=== PATIENT | female | born 1990 | race African-American/Black ===

== ENCOUNTER 2017-02-05 20:50 | Emergency (ER) | payer OTHER ==
[~2017-02-05] VITALS: Ht 172.7 cm; Wt 77.1 kg
[~2017-02-05 20:50] MED LIST: DIAZ5TAB PO; NAPR500T8 PO
[2017-02-05 21:32] VITALS: BP 133/62
--- NOTE | 2017-02-05 21:52 | PHYS DOC ---
Past Medical History Past Medical History: No Pertinent History Past Surgical History: Alcohol Use: Occasionally Drug Use: None Adult General Chief Complaint Chief Complaint: CHEST WALL PAIN HPI HPI Patient is a 26 year old female with no past medical history presents here today complaining of chest pain that started 2 weeks ago. Patient denies any history of hypertension diabetes liver longer kidney problems. Patient has any history of strokes or coronary disease. Patient has any history of DVT or PE in the past. Patient does not smoke. Patient will do any drugs. Patient reports she drinks occasionally. Patient has any control pills. Patient reports taking vitamins. Patient has any fevers shakes chills nausea vomiting diarrhea shortness breath cough cold runny nose. Patient reports that the pain wasn't right side. Patient denies any exacerbating factors including exertion eating deep inspiration or cough. She is unsure when her last menstrual period is but she thinks that she may be . Patient's physical exam the ER is unremarkable. Patient has every producible tenderness to palpation to her right anterior chest wall. Patient's repeatable pain with deep inspiration and cough. Patient's abdomen was soft nontender no rebound or guarding. Patient's workup in ER has been unremarkable. Patient has a normal EKG. Patient' s EKG reveals normal sinus rhythm at a heart rate of [address]-T wave abnormalities and no evidence of ST elevation OK. There is no old EKG to compare with. Assessment and plan: This is a 26-year-old female who presents here today secondary to right-sided anterior chest wall pain. Patient's EKG does not reveal tachycardia. There is a small Q and T-wave in leads 3. There is no large S wave in lead 1. Patient is . Patient is low risk for PE. Patient is not on any control pills. Patient does not smoke. Patient does not have a sedentary lifestyle. Patient does not have any family history of PE or DVT. Patient herself has not had any history of PE or DVT. Patient's physical exam did not reveal a split S2. There was no RV heave. There was no calf tenderness or Homans sign. Patient is not tachycardic on exam. Patient's pulse ox is 99% on room air. Patient is not complaining of any shortness of breath. Given that she is extremely remote risk and is I do not think further studies including a CT scan would be warranted. I feel that the risk benefit ratio would not warranted in the risk of radiation to the fetus versus the likelihood of it being a PE given her very low risk and normal physical exam would not warrant a CTA at this time. Patient test was positive in the emergency department. Patient was informed of this. Patient will be discharged home with instructions take Tylenol as needed for pain. Continue her pale vitamins and to follow-up with her primary care physician for further management. Laboratory Tests Test 02/05/17 20:21 Bedside Urine HCG, Qualitative Hcg positive Current Medications Medications (Trade) Dose Ordered Sig/Jacek Route PRN Reason Start Time Stop Time Status Last Admin Dose Admin Ibuprofen (Motrin) 600 mg 1X ONCE PO 02/05/17 22:00 02/05/17 22:01 Review of Systems Review of Systems Constitutional: Denies fever or chills [] Eyes: Denies change in visual acuity, redness, or eye pain [] HENT: Denies nasal congestion or sore throat [] Respiratory: Denies cough or shortness of breath [] : Denies dysuria or hematuria [] Musculoskeletal: Denies back pain or joint pain [] InAll other review systems are negative except as documented in the history of present illness portion. Current Medications Current Medications Current Medications Medications (Trade) Dose Ordered Sig/Jacek Start Time Stop Time Status Last Admin Dose Admin Ibuprofen (Motrin) 600 mg 1X ONCE 02/05/17 22:00 02/05/17 22:01 DC 02/05/17 21:52 600 MG Allergies Allergies Allergies Coded Allergies Type Severity Reaction Last Updated Verified No Known Drug Allergies 05/06/16 No Physical Exam Physical Exam Constitutional: Well developed, well nourished, no acute distress, non-toxic appearance. [] HENT: Normocephalic, atraumatic, bilateral external ears normal, oropharynx moist, no oral exudates, nose normal. [] Eyes: PERRLA, EOMI, conjunctiva normal, no discharge. [] Neck: Normal range of motion, no tenderness, supple, no stridor. [] Cardiovascular:Heart rate regular rhythm, no murmur [] Lungs & Thorax: Bilateral breath sounds clear to auscultation [] Abdomen: Bowel sounds normal, soft, no tenderness, no masses, no pulsatile masses. [] Skin: Warm, dry, no erythema, no rash. [] Back: No tenderness, no CVA tenderness. [] Extremities: No tenderness, no cyanosis, no clubbing, ROM intact, no edema. [] Neurologic: Alert and oriented X 3, normal motor function, normal sensory function, no focal deficits noted. [] Psychologic: Affect normal, judgement normal, mood normal. [] Current Patient Data Vital Signs Vital Signs Date Time Temp Pulse Resp B/P (MAP) Pulse Ox O2 Delivery O2 Flow Rate FiO2 02/05/17 21:32 80 16 133/62 (85) 100 Room Air 02/05/17 21:08 98.0 98.0 Lab Values Laboratory Tests Test 02/05/17 20:21 POC Urine HCG, Qualitative Hcg positive (Negative) EKG EKG [] Radiology/Procedures Radiology/Procedures [] Course & Med Decision Making Course & Med Decision Making Pertinent Labs and Imaging studies reviewed. (See chart for details) [] Dragon Disclaimer Dragon Disclaimer This electronic medical record was generated, in whole or in part, using a voice recognition dictation system. Departure Departure Impression: Primary Impression: Right-sided chest pain Additional Impression: Disposition: HOME, SELF-CARE Condition: IMPROVED Referrals: NO PCP (PCP) Patient Instructions: ABCs of , Chest Pain (Nonspecific) Additional Instructions: Tylenol as needed for pain. Continue with her vitamins. Follow-up with her primary care doctor for further evaluation. Problem Qualifiers LONDON ZEPEDA MD Feb 05, 2017 21:52
[2017-02-05] MEDS ORDERED: IBUPROFEN 600 MG TABLET. PO ONE (22:00)
== END 2017-02-05 22:00 | disposition home or self-care (01) ==
LOC: ER 20:50
DX: O26.899 Other specified pregnancy related conditions, unspecified trimester (principal); R07.89 Other chest pain; Z79.899 Other long term (current) drug therapy; Z3A.00 Weeks of gestation of pregnancy not specified
CPT/HCPCS: 81025; 99283-25

== ENCOUNTER 2017-04-12 12:05 | Emergency (ER) | payer OTHER ==
[~2017-04-12] VITALS: Ht 172.7 cm; Wt 78.0 kg
[2017-04-12 12:29] LABS: BILIRUBIN,URINE NEGATIVE (NEG); GLUCOSE,URINE NEGATIVE (NEG); NITRITE,URINE NEGATIVE (NEG); PROTEIN,URINE NEGATIVE (NEG-TRACE); UROBILINOGEN,URINE 0.2 mg/dL (0.2 mg/dL)
[2017-04-12 12:37] LABS: BACTERIA,URINE FEW /HPF (0-FEW); RBC,URINE 0 /HPF (0-2); SQUAMOUS EPITHELIAL CELL,UR FEW /LPF
[2017-04-12 12:48] LABS: BASO % 0 % (0-3); EOS % 0 % (0-3); HEMATOCRIT 34.6 % (36.0-47.0); HEMOGLOBIN 11.9 g/dL (12.0-15.5); LYMPH # 1.6 x10^3/uL (1.0-4.8); LYMPH % 22 % (24-48); MEAN CORPUSCULAR HEMOGLOBIN 32 pg (25-35); MEAN CORPUSCULAR HGB CONC 35 g/dL (31-37); MEAN CORPUSCULAR VOLUME 92 fL (79-100); MONO % 5 % (0-9); NEUT % 72 % (31-73); PLATELET COUNT 226 x10^3/uL (140-400); RED BLOOD COUNT 3.76 x10^6/uL (3.50-5.40); WHITE BLOOD COUNT 7.2 x10^3/uL (4.0-11.0)
--- NOTE | 2017-04-12 14:37 | PHYS DOC ---
Past Medical History Past Medical History: No Pertinent History Past Surgical History: Alcohol Use: None Drug Use: None Adult General Chief Complaint Chief Complaint: ABDOMINAL PAIN IN [facility] HPI Patient is a 26 year old G4, P3, AA female proximally 14 weeks gestation who presents with intermittent right lower quadrant pain described as sharp times one week. Pain is last proximally 5 minutes at a time. It is not associated with back pain, vaginal bleeding or discharge. Pain is not worse with ambulation , lifting or movement. Patient has been evaluated by her OB this but has not had an ultrasound confirmed IUP. Patient denies dizziness, lightheadedness, shortness of breath, and leg pain. Review of Systems Review of Systems ROS as per HPI. Allergies Allergies Allergies Coded Allergies Type Severity Reaction Last Updated Verified No Known Drug Allergies 05/06/16 No Physical Exam Physical Exam Constitutional: Well developed, well nourished, no acute distress, non-toxic appearance. [] HENT: Normocephalic, atraumatic, bilateral external ears normal, oropharynx moist, no oral exudates, nose normal. [] Eyes: PERRLA, EOMI, conjunctiva normal, no discharge. [] Neck: Normal range of motion, no tenderness. [] Cardiovascular:Heart rate regular rhythm, no murmur. [] Lungs & Thorax: Bilateral breath sounds clear to auscultation. [] Abdomen: Bowel sounds normal, soft, no tenderness. [] Skin: Warm, dry. [] Back: No tenderness. [] Extremities: No tenderness. [] Neurologic: Alert and oriented X 3, normal motor function, normal sensory function, no focal deficits noted. [] Psychologic: Affect normal, judgement normal, mood normal. [] Current Patient Data Vital Signs Vital Signs Date Time Temp Pulse Resp B/P (MAP) Pulse Ox O2 Delivery O2 Flow Rate FiO2 04/12/17 16:12 64 18 119/59 (79) 100 Room Air 04/12/17 12:10 98.6 98.6 Lab Values Laboratory Tests Test 04/12/17 12:10 04/12/17 12:14 04/12/17 12:37 Urine Collection Type Unknown Urine Color Yellow Urine Clarity Clear Urine pH 7.0 Urine Specific [place] <=1.005 Urine Protein Negative mg/dL (NEG-TRACE) Urine Glucose (UA) Negative mg/dL (NEG) Urine Ketones (Stick) Negative mg/dL (NEG) Urine Blood Negative (NEG) Urine Nitrite Negative (NEG) Urine Bilirubin Negative (NEG) Urine Urobilinogen Dipstick 0.2 mg/dL (0.2 mg/dL) Urine Leukocyte Esterase Small (NEG) Urine RBC 0 /HPF (0-2) Urine WBC 1-4 /HPF (0-4) Urine Squamous Epithelial Cells Few /LPF Urine Bacteria Few /HPF (0-FEW) POC Urine HCG, Qualitative Hcg positive (Negative) White Blood Count 7.2 x10^3/uL (4.0-11.0) Red Blood Count 3.76 x10^6/uL (3.50-5.40) Hemoglobin 11.9 g/dL (12.0-15.5) L Hematocrit 34.6 % (36.0-47.0) L Mean Corpuscular Volume 92 fL (79-100) Mean Corpuscular Hemoglobin 32 pg (25-35) Mean Corpuscular Hemoglobin Concent 35 g/dL (31-37) Red Cell Distribution Width 13.0 % (11.5-14.5) Platelet Count 226 x10^3/uL (140-400) Neutrophils (%) (Auto) 72 % (31-73) Lymphocytes (%) (Auto) 22 % (24-48) L Monocytes (%) (Auto) 5 % (0-9) Eosinophils (%) (Auto) 0 % (0-3) Basophils (%) (Auto) 0 % (0-3) Neutrophils # (Auto) 5.2 x10^3uL (1.8-7.7) Lymphocytes # (Auto) 1.6 x10^3/uL (1.0-4.8) Monocytes # (Auto) 0.4 x10^3/uL (0.0-1.1) Eosinophils # (Auto) 0.0 x10^3/uL (0.0-0.7) Basophils # (Auto) 0.0 x10^3/uL (0.0-0.2) Maternal Serum HCG Beta Subunit 57519 mIU/mL (0-5) H Laboratory Tests 04/12/17 12:37 EKG EKG [] Radiology/Procedures Radiology/Procedures [OB ultrasound: 14 week, 3 week IUP vital gestation. Small area of subchorionic hemorrhage] Course & Med Decision Making Course & Med Decision Making Pertinent Labs and Imaging studies reviewed. (See chart for details) [Patient O+. Asymptomatic in the ED. Subchorionic hemorrhage likely explanation of patient's symptoms. Recommend supportive care, pelvic rest and follow-up. Return precautions reviewed.] Dragon Disclaimer Dragon Disclaimer This electronic medical record was generated, in whole or in part, using a voice recognition dictation system. Departure Departure Impression: Primary Impression: Threatened in early Disposition: 01 HOME, SELF-CARE Condition: GOOD Referrals: UNKNOWN PCP NAME (PCP) JEANINE YOO DO Apr 12, 2017 14:37
--- NOTE | 2017-04-12 15:15 | RAD ---
Examination: Obstetric ultrasound greater than 14 weeks History: History of abdominal pain, . Comparison: 07/11/2016 Findings: Single living intrauterine identified with heart rate of 153 bpm The placenta is in the posterior wall in the fundus. There is a 3.8 cm heterogeneous echogenicity identified in the subcarinal region likely a subchorionic hemorrhage. Given LMP 01/04/2017. Clinical age 14 weeks 0 days with expected date of delivery 10/11/2017. Ultrasound age is 14 weeks and 3 days with expected delivery 10/08/2017 by this ultrasound. Cephalic index 81.4 Head circumference to abdominal circumference is 1.25 Femur length to biparietal diameter 56.7 Femur length head circumference 14.2 Femur length abdominal circumference 17.7 The biparietal diameter is 2.54 cm corresponding to 14 weeks and 3 days +/- 8 days. Head circumference is 10.14 cm corresponding to 14 weeks and 5 days +/- 8 days. Abdominal circumference 8.12 cm corresponding to 14 weeks and 3 days plus or minus 12 days Femur length 1.4 cm corresponding to 14 weeks and 2 days +/- 10 days. The cervix couldn't be clearly visualized. The visualized amniotic fluid grossly appears unremarkable. Impression: 1. Single living intrauterine with heart rate of 153 bpm with gestational age of 14 weeks and 3 days. 2. 3.8 cm heterogeneous echogenicity identified in the subchorionic region likely a small subchorionic bleed.
[2017-04-12 16:12] VITALS: BP 119/59
== END 2017-04-12 16:14 | disposition home or self-care (01) ==
LOC: ER 12:05
DX: O20.0 Threatened abortion (principal); Z3A.14 14 weeks gestation of pregnancy
CPT/HCPCS: 36415; 76805; 76817; 81001; 81025; 84702; 85025; 86900; 86901; 87086; 99285-25

== ENCOUNTER 2017-07-28 21:14 | Observation (INO) | payer OTHER ==
[2017-07-28] MEDS ORDERED: IV RINGERS,LACTATED 1000ML 1,000 ML IV (21:30)
[2017-07-28 21:39] LABS: BILIRUBIN,URINE NEGATIVE (NEG); CLARITY,URINE CLEAR; COLOR,URINE YELLOW; GLUCOSE,URINE NEGATIVE (NEG); NITRITE,URINE NEGATIVE (NEG); PH,URINE 6.5; PROTEIN,URINE NEGATIVE (NEG-TRACE); UROBILINOGEN,URINE 0.2 mg/dL (0.2 mg/dL)
[2017-07-28 21:45] LABS: BARBITURATES NEG (NEG); BENZODIAZEPINES NEG (NEG); CANNABINOIDS NEG (NEG); COCAINE NEG (NEG); METHADONE NEG (NEG); OPIATES NEG (NEG); PHENCYCLIDINE NEG (NEG)
[2017-07-28 21:46] LABS: AMPHETAMINE/METHAMPHETAMINE NEG (NEG); ETHANOL, URINE NEG (NEG); RBC,URINE OCC /HPF (0-2)
[2017-07-28 21:47] LABS: BACTERIA,URINE MODERATE /HPF (0-FEW); SQUAMOUS EPITHELIAL CELL,UR MOD /LPF
== END 2017-07-28 22:43 | disposition home or self-care (01) ==
LOC: 3 SO LND 21:14
DX: O26.893 Other specified pregnancy related conditions, third trimester (principal); R10.31 Right lower quadrant pain; Z3A.29 29 weeks gestation of pregnancy
CPT/HCPCS: 80307; 81001; 87086; G0378; G0379

== ENCOUNTER 2017-10-22 18:34 | Emergency (ER) | payer OTHER | END 2017-10-22 20:08 | disposition home or self-care (01) | LOC: ER 20:08 | DX: J01.00 Acute maxillary sinusitis, unspecified (principal); J06.9 Acute upper respiratory infection, unspecified; F12.10 Cannabis abuse, uncomplicated | CPT/HCPCS: 99283 ==

== ENCOUNTER 2020-03-06 20:40 | Emergency (ER) | payer SELFPAY ==
[~2020-03-06] VITALS: Ht 172.7 cm; Wt 87.0 kg
[~2020-03-06 20:40] MED LIST changes: +AMOX875T PO; +FLUT9.9S NS
[2020-03-06 21:50] VITALS: BP 141/65
[2020-03-06] MEDS ORDERED: DIPH25CA58 PO (22:28)
[2020-03-06] MEDS ORDERED: PRED50TA PO (22:28)
[2020-03-06] MEDS ORDERED: TRIA15OI TP (22:28)
[2020-03-06] MEDS ORDERED: FAMO20TA5 PO (22:28)
--- NOTE | 2020-03-06 22:29 | PHYS DOC ---
Past Medical History Past Medical History: No Pertinent History Past Surgical History: Other Smoking Status: Never Smoker Alcohol Use: Occasionally Drug Use: Marijuana General Adult EDM: Chief Complaint: INSECT BITE HPI: HPI: Patient is a 29 year old female who presents the ED today with an insect bite to the right lateral ankle that occurred yesterday. Patient denies any fever, denies any anaphylactic reaction symptoms Review of Systems: Review of Systems: Constitutional: Denies fever or chills. [] Musculoskeletal: Denies back pain or joint pain. [] Integument: Reports insect bite to the right lateral ankle Neurologic: Denies headache, focal weakness or sensory changes. [] Psychiatric: Denies depression or anxiety. [] Heart Score: Risk Factors: Risk Factors: DM, Current or recent (<one month) smoker, HTN, HLP, family history of CAD, obesity. Risk Scores: Score 0 - 3: 2.5% MACE over next 6 weeks - Discharge Home Score 4 - 6: 20.3% MACE over next 6 weeks - Admit for Clinical Observation Score 7 - 10: 72.7% MACE over next 6 weeks - Early Invasive Strategies Current Medications: Current Medications Medications (Trade) Dose Ordered Sig/Jacek Start Time Stop Time Status Last Admin Dose Admin Cetirizine HCl (ZyrTEC) 10 mg 1X ONCE 03/06/20 22:30 03/06/20 22:31 Famotidine (Pepcid) 20 mg 1X ONCE 03/06/20 22:30 03/06/20 22:31 Prednisone (Prednisone) 50 mg 1X ONCE 03/06/20 22:30 03/06/20 22:31 Allergies: Allergies: Allergies Coded Allergies Type Severity Reaction Last Updated Verified No Known Drug Allergies 05/06/16 No Physical Exam: PE: Constitutional: Well developed, well nourished, no acute distress, non-toxic appearance. [] Skin: Right lateral ankle with a small area of erythema consistent with an insect bite. The area is warm tender to touch but does not appear infected. +2 right pedal pulse. Negative Homans sign to the right lower extremity. Back: No tenderness, no CVA tenderness. [] Extremities: No tenderness, no cyanosis, no clubbing, ROM intact, no edema. [] Neurologic: Alert and oriented X 3, normal motor function, normal sensory function, no focal deficits noted. [] Psychologic: Affect normal, judgement normal, mood normal. [] Current Patient Data: Vital Signs: Vital Signs Date Time Temp Pulse Resp B/P (MAP) Pulse Ox O2 Delivery O2 Flow Rate FiO2 03/06/20 21:50 96.8 65 16 141/65 (90) 98 Room Air 96.8 EKG: EKG: [] Radiology/Procedures: Radiology/Procedures: [] Course & Med Decision Making: Course & Med Decision Making Pertinent Labs and Imaging studies reviewed. (See chart for details) This is a 29-year-old female patient presents to the ED today with an insect bite to the right lateral ankle. The area does not appear infected. Patient has a local reaction to this bite. She was discharged to home with triamcinolone cream, Benadryl and Pepcid. She is also given prescription for prednisone. Roger Disclaimer: Dragon Disclaimer: This electronic medical record was generated, in whole or in part, using a voice recognition dictation system. Departure Departure Impression: Primary Impression: Insect bite of lower extremity Qualified Codes: S80.861A - Insect bite (nonvenomous), right lower leg, initial encounter; W57.XXXA - Bitten or stung by nonvenomous insect and other nonvenomous arthropods, initial encounter Disposition: 01 HOME, SELF-CARE Condition: STABLE Referrals: NO PCP (PCP) follow up with your doctor in 1 week Patient Instructions: Insect Bite, [id number] Additional Instructions: You have an insect bite to your right ankle. Use the prescribed medications as ordered. Follow-up with your doctor in 2 weeks. Keep the area clean and dry. Scripts Prednisone (PREDNISONE) 50 Mg Tablet 1 TAB PO DAILY, #5 TAB Prov: ISMAELANILS OPERATIONS MANAGER 03/06/20 Famotidine (FAMOTIDINE) 20 Mg Tablet 20 MG PO DAILY, #7 TAB Prov: MUTUNGANILS OPERATIONS MANAGER 03/06/20 Triamcinolone Acetonide (TRIAMCINOLONE ACETONIDE 0.1% OINT) 15 Gm Oint...g. 1 AUDRA TP TID for WOUND CARE, #1 TUBE Apply to the bite site Prov: NILS ARTEAGA OPERATIONS MANAGER 03/06/20 Diphenhydramine Hcl (BENADRYL) 25 Mg Capsule 1 CAP PO TID, #30 CAP 0 Refills Prov: MUTUNGANILS OPERATIONS MANAGER 03/06/20 Justicifation of Admission Dx: Justifications for Admission: Justification of Admission Dx: N/A NILS ARTEAGA APRN Mar 06, 2020 22:29
[2020-03-06] MEDS ORDERED: predniSONE 10 MG TABLET PO ONE (22:30)
[2020-03-06] MEDS ORDERED: CETIRIZINE HCL 10 MG TABLET. PO ONE (22:30)
[2020-03-06] MEDS ORDERED: FAMOTIDINE 20 MG TABLET. PO ONE (22:30)
== END 2020-03-06 22:45 | disposition home or self-care (01) ==
LOC: ER 20:40
DX: S90.561A Insect bite (nonvenomous), right ankle, initial encounter (principal); W57.XXXA Bitten or stung by nonvenomous insect and other nonvenomous arthropods, initial encounter; Y93.89 Activity, other specified; Y92.89 Other specified places as the place of occurrence of the external cause; Y99.8 Other external cause status
CPT/HCPCS: 99284; J7512